=== PATIENT | male | born 1975 | race Caucasian/White ===

== ENCOUNTER 2017-02-27 10:38 | Observation (INO) | payer BC ==
--- NOTE | ~2017-02-27 | HP ---
History And Physical [address] [place]. [address] NAME: SERVANDO WHITE : 73 STATUS : DIS Rosa PAT#: [id number] AGE: 41 ADM/REG DATE : 02/27/17 MR#: [id number] REPORT SERV DATE: 02/28/17 DICTATED BY: DATE: REPORT STATUS : Draft TRANSCRIBED BY: MODL DATE: 02/28/17 DATE OF ADMISSION: 02/27/2017 Primary care provider is Dr. Baker. DISTRIBUTION WAREHOUSE MANAGER: Loni Henley M.D. NEUROLOGIST: Dr. Rosario. HISTORY OF PRESENT ILLNESS: This is a 41-year-old white male who has developed severe fatigue in the last onfop-gq-ivvg days, accompanied by abdominal pain 7 to 8 out of 10 to his left lower quadrant and multiple events of vomiting. He denies any chills or fever. After xnpct-tu-qvmf days of those events, he reports to have developed worsening abdominal pain on Sunday along with sharp and shooting chest pain and pressure 6 out of 10 to his left chest that radiated to his left wrist. He also reports to have had increased shortness of breath, nausea, and diaphoresis during this event that lasted 5 to 10 minutes, then reoccurred along with bad heartburn and then resolved on its own. Currently he has no complaints. He denies any shortness of breath, chest pain, nausea, vomiting, or abdominal pain. The patient denies any personal history of myocardial infarction, stroke, DVT, or pulmonary embolus. The patient denies any recent fever or chills, palpitations, or syncopal episodes. Denies PND or orthopnea. 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 PAST SURGICAL HISTORY: He does report to have had a cath three or four years ago by Dr. Hearn which he reports was negative and was done due to increased troponin. 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 He is , with 5 children. He smokes half a pack per day and has been smoking that for the last 10 years. He denies any alcohol use or any illicit drug use. He does not have any routine exercise regimen. FAMILY HISTORY: He denies his mother having any cardiac issues. His father, he reports, had an OH at the age of 40 and 3 MIs total with a PCI and hypertension. REVIEW OF SYSTEMS: A 14-point review of systems was performed, significant for HPI. No other contributory diagnosis identified. ALLERGIES: HE IS ALLERGIC TO PENICILLIN. HOME MEDICATIONS: 1. Hyzaar 100/25 one tablet p.o. daily. 2. Topamax 100 p.o. twice a day. History And Physical [address] [address] NAME: SERVANDO WHITE : 73 STATUS : DIS Rosa PAT#: [id number] AGE: 41 ADM/REG DATE : 02/27/17 MR#: [id number] REPORT SERV DATE: 02/28/17 DICTATED BY: DATE: REPORT STATUS : Draft TRANSCRIBED BY: ZACHARY DATE: 02/28/17 3. Xanax 1 mg p.o. 3 times a day as needed for anxiety. 4. Clonidine 0.1 mg p.o. daily as needed p.r.n. systolic blood pressure greater than 150. 5. Imitrex 100 p.o. p.r.n. onset of migraine. 6. Promethazine 12.5 p.o. every 8 hours as needed p.r.n. nausea and vomiting. 7. Acetaminophen 1000 mg p.o. daily as needed p.r.n. headache. 8. Celexa 40 mg p.o. daily. 9. Restoril 30 mg p.o. at bedtime as needed for sleep. PHYSICAL EXAMINATION: GENERAL: Cooperative, in no apparent distress. HEENT: Head normocephalic, anicteric. Normal EOM. PERRLA. No xanthelasma. Nares patent. Moist mucous membranes. NECK: Trachea midline. No thyromegaly, JVD, or bruits. RESPIRATORY: Clear to auscultation bilaterally anterior and posterior. Respirations even and unlabored. No wheezes, rhonchi or crackles. CARDIOVASCULAR: Regular rate and rhythm. No murmur, rub or gallop appreciated. No chest wall tenderness to palpation. ABDOMEN: Soft with active bowel sounds but tender to touch. No masses or organomegaly. EXTREMITIES: No peripheral edema. DP/PT and radial pulses palpable bilaterally. No clubbing or cyanosis. SKIN: Warm, dry and intact. Normal turgor. No pallor or cyanosis. NEURO/PSYCH: Alert, oriented x3 with no acute distress. Affect appropriate to current situation. LABORATORY DATA: Troponins have been flat 0.08, 0.08, and 0.07. He has a sodium of 141, potassium 3.7, BUN 22, creatinine 1.48, GFR 67, glucose 89, calcium 9.4, and magnesium 1.9. White blood cells 7.6, hemoglobin 15.7, hematocrit 45.1, platelets 209, INR 1.1. EKG done on 02/28/2017, at 3.56 showed sinus rhythm 51. His it architecture consultant shows sinus americo 59, no ectopy. CTA of the chest shows 1. No evidence of pulmonary emboli, no acute abnormality otherwise. 2. Aneurysmal dilatation of the ascending aorta. No prior exams are available for comparison. There is aneurysmal dilatation of the ascending aorta measuring approximately 43 x 45 mm transversely. There is no evidence of thoracic aortic dissection. CT of the abdomen and pelvis showed 1. No evidence of acute abnormality within the abdomen or pelvis. 2. Minimal focal abnormality in the superior right hepatic lobe, too small to accurately characterize but likely a minimal cyst or hemangioma. ASSESSMENT AND PLAN: 1. Atypical chest pain. Troponins have been flat. The patient denies any current chest pain or pressure. Cardiac risk factors include hypertension and family history. We will keep the patient n.p.o. and we will schedule a stress echo today. If the stress test is low risk or does not show any ischemia, RN is to discharge the patient home with followup with primary care provider in 1 or 2 weeks. History And Physical [address] [address] NAME: SERVANDO WHITE : 73 STATUS : DIS Rosa PAT#: [id number] AGE: 41 ADM/REG DATE : 02/27/17 MR#: [id number] REPORT SERV DATE: 02/28/17 DICTATED BY: DATE: REPORT STATUS : Draft TRANSCRIBED BY: MODL DATE: 02/28/[address] of the abdomen shows no evidence of acute abnormalities within the abdomen or pelvis. We will monitor and defer further workup to the patient's PCP after discharge. The patient denies any current abdominal pain. 3. Hypertension appears stable. We will address the home medications. 4. Aortic arch aneurysm per CT. Aneurysmal dilatation of the ascending aorta measures 43 x 45 mm transversely. No evidence of thoracic aortic dissection. We will defer to the patient's tooling mechanic for further followup after discharge. 5. GERD. We will defer to the patient's primary care physician after discharge. 6. Renal insufficiency. This appears to be chronic for the patient. Creatinine in January of 2017, showed a creatinine of 1.70, today it is 1.48, appears to be stable. We will continue to monitor. 7. Anxiety. We will continue the patient's Xanax. EKS/MODL Narda Schaeffer APN / [id number] CC: LORI Garvin M.D.
[~2017-02-27 10:38] MED LIST: ASAB PO; ATIVAN2 MG PO; ATV1 PO; BENTYL20 PO; CAT1 PO; CELEXA20 PO; COREG25 PO; COREG6 PO; COZ50 PO; HYZAAR 100/25 T1 TAB PO; KLONO5 PO; NORV10 PO; PRILOSEC40 MG PO; PROTONIX PO; RESTORIL30 MG PO; SLOWMAG PO; SPIRO25 PO; SPIRO50 PO; TRANDAT300 PO; XANAX1 MG PO; ZESTORETIC1 TA1 PO; ZOFRAN4 PO
[2017-02-27 12:16] LABS: BASOPHILS 0.4 %; BASOPHILS ABSOLUTE 0.03 10/3/uL (0.0-0.16); EOSINOPHILS 3.3 %; EOSINOPHILS ABSOLUTE 0.25 10/3/uL (0.0-0.53); HEMATOCRIT 45.1 % (40.0-51.0); HEMOGLOBIN 15.7 g/dL (13.6-17.8); IMMATURE GRANULOCYTES 0.1 %; IMMATURE GRANULOCYTES ABSOLUTE 0.01 10/3/uL (0.0-0.11); LYMPHOCYTES 27.9 %; LYMPHOCYTES ABSOLUTE 2.12 10/3/uL (0.67-4.30); MEAN CORPUS HGB CONC 34.8 g/dL (32.0-36.0); MEAN CORPUSCULAR HEMOGLOB 31.5 pg (26.0-34.0); MEAN CORPUSCULAR VOLUME 90.4 fL (80-100); MEAN PLATELET VOLUME 9.5 fL (9.2-13.0); MONOCYTES 7.6 %; MONOCYTES ABSOLUTE 0.58 10/3/uL (0.21-1.20); NEUTROPHILS 60.7 %; NEUTROPHILS ABSOLUTE 4.61 10/3/uL (2.02-8.40); PLATELET COUNT 209 10/3/uL (150-400); RBC DISTRIBUTION WIDTH 13.8 % (12.0-16.0); RED CELL COUNT 4.99 10/6/uL (4.7-6.1); WHITE BLOOD CELLS 7.6 10/3/uL (4.5-10.5)
[2017-02-27 12:18] LABS: MANUAL DIFF NO %
[2017-02-27 12:24] LABS: INTERNATIONAL NORMAL RATI 1.1 UNITS (-); PARTIAL THROMBO TIME 32.5 SEC (22.5-37.2); PROTIME (NOT ORD) 13.8 SEC (12.0-14.5)
[2017-02-27 12:34] LABS: BUN (BLOOD UREA NITROGEN) 22 MG/DL (6-23); CALCIUM, SERUM 9.4 MG/DL (8.5-10.4); CHLORIDE, SERUM 108 MMOL/L (96-112); CO2 (CARBON DIOXIDE) 27 MMOL/L (24-34); CREATININE 1.48 MG/DL (0.70-1.30); GFR AFRICAN AMERICAN 67 ML/MIN (>=60); GFR NON AFRICAN AMERICAN 58 ML/MIN (>=60); GLUCOSE, SERUM 89 MG/DL (60-99); POTASSIUM, SERUM 3.7 MMOL/L (3.5-5.3); SODIUM, SERUM 141 MMOL/L (135-148)
[2017-02-27 12:35] LABS: CHEST PAIN PROFILE TAT 0 Hrs 23 Mins; TROPONIN I 0.08 NG/ML (<0.05)
[2017-02-27] MEDS ORDERED: TOPAMAX100 PO (12:45)
[2017-02-27] MEDS ORDERED: HYZAAR 100/25 T1 TAB PO (12:45)
[2017-02-27] MEDS ORDERED: XANAX1 MG PO (12:46)
[2017-02-27] MEDS ORDERED: PR12.5 PO (12:47)
[2017-02-27] MEDS ORDERED: CAT1 PO (12:47)
[2017-02-27] MEDS ORDERED: IMITREX100 MG PO (12:47)
[2017-02-27] MEDS ORDERED: ACET500CAP PO (12:48)
[2017-02-27] MEDS ORDERED: CELEXA40 MG PO (12:48)
[2017-02-27] MEDS ORDERED: RESTORIL30 MG PO (12:48)
== END 2017-02-28 12:35 | disposition home or self-care (01) ==
LOC: ER 10:38 → CDU1 16:44 → CDU2 17:07
PROVIDERS: Nurse Practitioner Family
DX: R07.89 Other chest pain (principal); F41.9 Anxiety disorder, unspecified; I71.4 Abdominal aortic aneurysm, without rupture; F17.210 Nicotine dependence, cigarettes, uncomplicated; I11.9 Hypertensive heart disease without heart failure; R10.9 Unspecified abdominal pain; K21.9 Gastro-esophageal reflux disease without esophagitis; I65.29 Occlusion and stenosis of unspecified carotid artery; N28.9 Disorder of kidney and ureter, unspecified; Z98.890 Other specified postprocedural states
CPT/HCPCS: 71275; 74177; 80048; 83690; 83735; 83880; 84484; 85025; 85610; 85730; 93005; 93017; 96374; 96375; 99285; A9270-GY; C8928; G0378; J2405; Q9957; Q9967